=== PATIENT | female | born 1980 | race Caucasian/White ===

== ENCOUNTER 2018-07-07 08:28 | Observation (INO) | payer OTHER ==
[~2018-07-07] VITALS: Ht 154.9 cm; Wt 56.2 kg
[2018-07-07 08:44] VITALS: BP 104/60
[2018-07-07] MEDS ORDERED: PREN1TAB80 PO (08:45)
[2018-07-07] MEDS ORDERED: LEVO100 PO (08:45)
[2018-07-07 09:43] LABS: HEMOGLOBIN A1C 5.1 % (4.5-6.2)
== END 2018-07-07 11:50 | disposition home or self-care (01) ==
LOC: 4S 08:28
PROVIDERS: ADMIT Obstetrics & Gynecology; ATTEND Obstetrics & Gynecology
DX: O24.419 Gestational diabetes mellitus in pregnancy, unspecified control (principal); O09.523 Supervision of elderly multigravida, third trimester; Z3A.37 37 weeks gestation of pregnancy
CPT/HCPCS: 36415; 59025; 82947; 83036; G0378

== ENCOUNTER 2018-07-20 13:03 | Inpatient (IN) | payer OTHER ==
[~2018-07-20] VITALS: Ht 154 cm; Wt 56.2 kg
[~2018-07-20 13:03] MED LIST: LEVO100 PO; PREN1TAB80 PO
[2018-07-20] MEDS ORDERED: RINGERS SOLUTION,LACTATED 1,000 ML IV PRN (13:07)
[2018-07-20] MEDS ORDERED: OXYTOCIN 30 UNITS/LACT RINGERS 500 ML IV ONE (13:07)
[2018-07-20] MEDS ORDERED: LEVO50 PO (13:11)
[2018-07-20] MEDS ORDERED: PREN1TAB80 PO (13:11)
[2018-07-20] MEDS ORDERED: CITRIC ACID/SODIUM CITRATE 30 ML SOLUTION UDCUP PO PRN (13:15)
[2018-07-20] MEDS ORDERED: METOCLOPRAMIDE HCL 5 MG/ML 2 ML VIAL IVP PRN (13:15)
[2018-07-20] MEDS ORDERED: LIDOCAINE HCL/PF 1% 30 ML VIAL INJ PRN (13:15)
[2018-07-20] MEDS: RINGERS SOLUTION,LACTATED 1,000 ML IV SCH ×2 (13:36→21:00)
[2018-07-20 13:44] LABS: GLUCOMETER DEV NAME(LOC) 4S 8; GLUCOSE,POINT OF CARE 65 MG/DL (70-110)
[2018-07-20 13:47] VITALS: BP 110/59
[2018-07-20] MEDS ORDERED: DINOPROSTONE 10 MG VAGINAL SUPPOSITORY VG ONE (14:30)
[2018-07-20 15:10] LABS: BASOPHILS % (AUTO) 0.4 % (0.0-2.0); EOSINOPHILS % (AUTO) 0.4 % (1.0-6.0); HEMATOCRIT 35.3 % (36-46); LYMPHOCYTES # (AUTO) 1.4 K/uL (1.0-4.8); LYMPHOCYTES % (AUTO) 17.6 % (22.0-44.0); MEAN CORPUSCULAR HEMOGLOBIN 30.2 pg (26.0-34.0); MEAN CORPUSCULAR HGB CONC 34.1 G/dL (31.0-37.0); MEAN CORPUSCULAR VOLUME 89 fL (80-100); MONOCYTES # (AUTO) 0.5 K/uL (0.1-1.0); MONOCYTES % (AUTO) 5.9 % (2.0-9.0); NEUTROPHILS # (AUTO) 6.1 K/uL (1.8-7.7); NEUTROPHILS % (AUTO) 75.7 % (40.0-70.0); PLATELET COUNT (AUTO) 141 K/uL (150-450); RED BLOOD CELL COUNT(AUTO) 3.99 MIL/uL (4.00-5.20); RED CELL DISTRIBUTION WIDTH 13.8 % (11.5-14.5)
[2018-07-20] MEDS ORDERED: OXYGEN THERAPY IH SCH (20:00)
[2018-07-21] MEDS: MISOPROSTOL 25 MCG TABLET VG SCH ×3 (03:58→12:00)
[2018-07-21] MEDS: RINGERS SOLUTION,LACTATED 1,000 ML IV SCH ×5 (04:38→15:50)
[2018-07-21] MEDS ORDERED: OXYTOCIN 30 UNITS/LACT RINGERS 500 ML IV PRN (11:55)
[2018-07-21] MEDS ORDERED: MORPHINE SULFATE/PF 0.5 MG/ML 10 ML AMP IVP ONE (12:00)
[2018-07-21] MEDS ORDERED: ONDANSETRON HCL 4 MG/2 ML VIAL IVP ONE (12:00)
[2018-07-21] MEDS ORDERED: KETOROLAC TROMETHAMINE 60 MG/2 ML VIAL IM ONE (12:00)
[2018-07-21] MEDS ORDERED: OXYTOCIN 10 UNITS/ML VIAL IM ONE (12:00)
[2018-07-21] MEDS ORDERED: FentaNYL CITRATE-PF 100 MCG/2 ML VIAL IVP ONE (12:00)
[2018-07-21] MEDS: FentaNYL CITRATE-PF 100 MCG/2 ML VIAL IVP PRN ×6 (12:23→19:48)
[2018-07-21] MEDS ORDERED: ROPIVACAINE HCL/PF 0.2% 100 ML ED ONE (15:33)
[2018-07-21] MEDS ORDERED: BUPIVACAINE HCL/PF 0.25% 30 ML VIAL ONE (20:11)
[2018-07-21] MEDS ORDERED: LIDOCAINE HCL/PF 2% 5 ML VIAL ONE ×2 (20:21→22:01)
[2018-07-21] MEDS ORDERED: RINGERS SOLUTION,LACTATED 1,000 ML IV ONE ×2 (22:04→22:15)
[2018-07-21] MEDS ORDERED: SODIUM CHLORIDE 0.9% 1,000 ML IV ONE (22:15)
[2018-07-21] MEDS ORDERED: GUM MASTIC/STORAX/MSAL/ALCOHOL LIQUID 0.67 ML VIAL TP ONE (22:19)
[2018-07-21] MEDS ORDERED: OXYTOCIN 30 UNITS/LACT RINGERS 500 ML IV ONE (23:05)
[2018-07-21] MEDS ORDERED: NALBUPHINE HCL 10 MG/ML VIAL IVP PRN ×2 (23:15)
[2018-07-21] MEDS ORDERED: NALOXONE HCL 0.4 MG/ML VIAL IVP PRN (23:15)
[2018-07-21] MEDS ORDERED: ONDANSETRON HCL 4 MG/2 ML VIAL IVP PRN (23:15)
[2018-07-21] MEDS ORDERED: DiphenhydrAMINE HCL 50 MG/ML VIAL IVP PRN (23:15)
[2018-07-21] MEDS ORDERED: OxyCODONE HCL/ACETAMINOPHEN 5-325 MG TABLET PO PRN ×2 (23:15)
[2018-07-21] MEDS ORDERED: MORPHINE SULFATE 10 MG/ML SYRINGE IVP PRN (23:15)
[2018-07-21] MEDS ORDERED: LANOLIN 7 GM OINTMENT TP PRN (23:15)
[2018-07-21] MEDS ORDERED: MEPERIDINE HCL/PF 25 MG/0.5 ML AMP IVP PRN (23:15)
[2018-07-21] MEDS ORDERED: HYDROmorphone 2 MG/ML SYRINGE IVP PRN (23:15)
[2018-07-21] MEDS ORDERED: FentaNYL CITRATE-PF 100 MCG/2 ML VIAL IVP PRN ×2 (23:15)
[2018-07-22] MEDS ORDERED: KETOROLAC TROMETHAMINE 30 MG/ML VIAL ONE (00:46)
[2018-07-22] MEDS ORDERED: ACETAMINOPHEN 1000 MG/ISO-OSM 100 ML IV ONE (00:46)
[2018-07-22] MEDS: ACETAMINOPHEN 1000 MG/ISO-OSM 100 ML IV SCH ×2 (00:47→09:20)
[2018-07-22] MEDS: KETOROLAC TROMETHAMINE 30 MG/ML VIAL IVP SCH ×2 (00:48→05:56)
[2018-07-22] MEDS: RINGERS SOLUTION,LACTATED 1,000 ML IV SCH ×2 (01:35→09:21)
[2018-07-22 06:24] LABS: BASOPHILS % (AUTO) 0.2 % (0.0-2.0); EOSINOPHILS % (AUTO) 0 % (1.0-6.0); HEMATOCRIT 26.8 % (36-46); HEMOGLOBIN 9.3 g/dL (12.0-16.0); LYMPHOCYTES # (AUTO) 1.3 K/uL (1.0-4.8); LYMPHOCYTES % (AUTO) 12.6 % (22.0-44.0); MEAN CORPUSCULAR HGB CONC 34.6 G/dL (31.0-37.0); MEAN CORPUSCULAR VOLUME 90 fL (80-100); MONOCYTES # (AUTO) 0.5 K/uL (0.1-1.0); MONOCYTES % (AUTO) 5.1 % (2.0-9.0); NEUTROPHILS # (AUTO) 8.8 K/uL (1.8-7.7); NEUTROPHILS % (AUTO) 82.1 % (40.0-70.0); PLATELET COUNT (AUTO)-OB 101 K/uL (150-450); RED BLOOD CELL COUNT(AUTO) 2.99 MIL/uL (4.00-5.20); RED CELL DISTRIBUTION WIDTH 14.1 % (11.5-14.5)
[2018-07-22] MEDS ORDERED: OXYGEN THERAPY IH SCH ×3 (08:00)
[2018-07-22] MEDS: MAGNESIUM HYDROXIDE SUSPENSION 30 ML UDCUP PO SCH ×2 (09:20→21:56)
[2018-07-22] MEDS ORDERED: IBUPROFEN 800 MG TABLET PO PRN (23:15)
[2018-07-23] MEDS: MAGNESIUM HYDROXIDE SUSPENSION 30 ML UDCUP PO SCH ×2 (09:08→21:00)
[2018-07-24] MEDS ORDERED: IBUP-2071 PO (10:21)
[2018-07-24] MEDS ORDERED: DSS100 PO (10:22)
[2018-07-24] MEDS ORDERED: ACET1TAB12 PO (10:23)
[2018-07-24] MEDS ORDERED: FERR-89 PO (10:23)
== END 2018-07-24 12:55 | disposition home or self-care (01) | DRG 766 ==
LOC: 4S 13:03 → OBSVTOIN 13:03 → 4S 07-22 03:18
PROVIDERS: ADMIT Obstetrics & Gynecology; ATTEND Obstetrics & Gynecology
PROC: 10D00Z1 Extraction of Products of Conception, Low, Open Approach (ICD-10-PCS; principal; 2018-07-21)
DX: O80 Encounter for full-term uncomplicated delivery (principal); Z37.0 Single live birth; Z3A.39 39 weeks gestation of pregnancy
CPT/HCPCS: 86850; 86900; 86901; 86920; 87081; J0131; J0690; J1885; J2274; J2405; J2590; J2765; J2795; J3010; J3490; J7030; J7120